=== PATIENT | female | born 1975 | race Two or more races ===

== ENCOUNTER 2022-07-02 10:44 | Emergency (ER) | payer OTHER ==
[~2022-07-02] VITALS: Ht 152.4 cm; Wt 86.7 kg
[2022-07-02 10:55] VITALS: BP 143/86
[2022-07-02 11:27] LABS: Urine Bacteria NONE SEEN /hpf (None Seen); Urine Blood Negative /uL (Negative); Urine Mucus FEW (None Seen); Urine Specific Gravity 1.025 (1.001-1.035); Urine WBC 2 /hpf (0 - 5)
[2022-07-02 12:00] LABS: Basophils # (auto) 0 10 ^3/uL (0-0.2); Basophils % (auto) 0.5 % (0.0-2.0); Eosinophils # (auto) 0.2 10 ^3/uL (0-0.8); Eosinophils % (auto) 2.6 % (0.0-7.0); Hematocrit 42.6 % (36.0-46.0); Hemoglobin 14.5 g/dL (12.2-16.2); Lymphocytes # (auto) 2.6 10 ^3/uL (0.4-5.4); Lymphocytes % (auto) 29.7 % (10.0-50.0); Mean Corpuscular Hemoglobin 30.1 pg (28.0-32.0); Mean Corpuscular Hgb Conc. 34.1 g/dL (32.0-36.0); Mean Corpuscular Volume 88.5 fL (80.0-100.0); Monocytes # (auto) 0.5 10 ^3/uL (0-1.3); Monocytes % (auto) 5.8 % (0.0-12.0); Neutrophils # (auto) 5.3 10 ^3/uL (1.6-8.6); Neutrophils % (auto) 61.4 % (37.0-80.0); Nucleated Red Blood Cells % 0.1 %; Red Blood Cells 4.82 10^6/uL (4.0-5.20); Red Cell Distribution Width 13.4 % (11.8-14.3); White Blood Cell 8.6 10^3/uL (4.4-10.8)
[2022-07-02 12:21] LABS: Albumin 3.9 g/dL (3.4-5.0); Calcium 9.1 mg/dL (8.5-10.1); Potassium 3.5 mmol/L (3.5-5.1)
[2022-07-02 12:24] LABS: Bilirubin, Total 0.3 mg/dL (0.2-1.0); Total Protein 7.5 g/dL (6.4-8.2)
[2022-07-02] MEDS ORDERED: TRAM-297 PO (14:49)
== END 2022-07-02 14:50 | disposition home or self-care (01) ==
LOC: ER 10:44
DX: K80.20 Calculus of gallbladder without cholecystitis without obstruction (principal); R10.31 Right lower quadrant pain; D21.9 Benign neoplasm of connective and other soft tissue, unspecified
CPT/HCPCS: 36415; 74176; 80053; 81001; 81025; 83690; 85025

== ENCOUNTER 2022-07-31 17:32 | Emergency (ER) | payer OTHER ==
[~2022-07-31] VITALS: Ht 152.4 cm; Wt 85.7 kg
[~2022-07-31 17:32] MED LIST: TRAM-297 PO
[2022-07-31 18:33] LABS: Basophils # (auto) 0 10 ^3/uL (0-0.2); Basophils % (auto) 0.3 % (0.0-2.0); Eosinophils # (auto) 0 10 ^3/uL (0-0.8); Eosinophils % (auto) 0.3 % (0.0-7.0); Hematocrit 42.9 % (36.0-46.0); Hemoglobin 15.1 g/dL (12.2-16.2); Lymphocytes # (auto) 0.9 10 ^3/uL (0.4-5.4); Lymphocytes % (auto) 6.7 % (10.0-50.0); Mean Corpuscular Hemoglobin 30.2 pg (28.0-32.0); Mean Corpuscular Hgb Conc. 35.1 g/dL (32.0-36.0); Monocytes # (auto) 0.5 10 ^3/uL (0-1.3); Monocytes % (auto) 4.1 % (0.0-12.0); Neutrophils # (auto) 11.6 10 ^3/uL (1.6-8.6); Neutrophils % (auto) 88.6 % (37.0-80.0); Nucleated Red Blood Cells % 0.3 %; Red Blood Cells 4.99 10^6/uL (4.0-5.20); Red Cell Distribution Width 13.2 % (11.8-14.3); White Blood Cell 13.1 10^3/uL (4.4-10.8)
[2022-07-31 18:49] LABS: Albumin 3.6 g/dL (3.4-5.0); BUN/Creatinine Ratio 11.9 (10.0-20.0); Calcium 8.3 mg/dL (8.5-10.1); Potassium 3.6 mmol/L (3.5-5.1)
[2022-07-31 18:51] LABS: Bilirubin, Total 0.5 mg/dL (0.2-1.0); Total Protein 7.4 g/dL (6.4-8.2)
[2022-07-31 18:56] LABS: Urine Bacteria NONE SEEN /hpf (None Seen); Urine Blood Negative /uL (Negative); Urine Mucus FEW (None Seen); Urine Specific Gravity 1.027 (1.001-1.035); Urine WBC <1 /hpf (0 - 5)
[2022-08-01] MEDS ORDERED: METR500T PO (00:56)
[2022-08-01] MEDS ORDERED: HYDR-4902 PO (00:56)
[2022-08-01] MEDS ORDERED: ONDA-144 PO (00:56)
[2022-08-01] MEDS ORDERED: cefTRIAXone SOD 1,000 MG VL IM ONE (01:00)
[2022-08-01] MEDS ORDERED: KETOROLAC TROMETH 30 MG/ML 1ML VIAL IM ONE (01:00)
[2022-08-01] MEDS ORDERED: ONDANSETRON ODT 4 MG TAB PO ONE (01:00)
[2022-08-01 02:12] VITALS: BP 123/81
== END 2022-08-01 02:25 | disposition home or self-care (01) ==
LOC: ER 17:32
DX: R10.13 Epigastric pain (principal); K80.20 Calculus of gallbladder without cholecystitis without obstruction; K80.70 Calculus of gallbladder and bile duct without cholecystitis without obstruction
CPT/HCPCS: 36415; 76705; 80053; 81001; 83605; 83690; 85025; 96372; 99285; J0696; J1885; Q0162

== ENCOUNTER 2023-11-25 12:27 | Emergency (ER) | payer OTHER ==
[~2023-11-25] VITALS: Ht 152.4 cm; Wt 88.7 kg
[~2023-11-25 12:27] MED LIST changes: +HYDR-4902 PO; +METR500T PO; +ONDA-144 PO
[2023-11-25] MEDS ORDERED: NAPR-746 PO (15:32)
[2023-11-25] MEDS: KETOROLAC TROMETH 30 MG/ML 1ML VIAL IM ONE (15:54)
[2023-11-25 15:55] VITALS: BP 142/71; PULSE 96; RESP 16; TEMP 98.7; O2SAT 96
== END 2023-11-25 16:02 | disposition home or self-care (01) ==
LOC: ER 12:36
DX: M77.31 Calcaneal spur, right foot (principal); Z79.1 Long term (current) use of non-steroidal anti-inflammatories (NSAID); Z79.891 Long term (current) use of opiate analgesic; Z79.899 Other long term (current) drug therapy
CPT/HCPCS: 73650; 96372; 99283; J1885

== ENCOUNTER 2025-01-16 09:35 | Emergency (ER) | payer BC, OTHER ==
[~2025-01-16] VITALS: Ht 152.4 cm; Wt 90.0 kg
[~2025-01-16 09:35] MED LIST changes: +NAPR-746 PO
[2025-01-16 09:36] VITALS: TEMP 98.8
--- NOTE | 2025-01-16 09:56 | ED.PDOC ---
History of Present Illness HPI Comments 49-year-old female presents to the ER with no prior medical history associated with a chief complaint of headache. Patient reports on having left-sided headache which radiates down her left neck for one week. Patient assumes that it might be related to the lump on her neck that she has been having for two months. Denies blurry vision, weakness, chills, fever, N/V/D, SOB, CP. No other associated symptoms, modifiers, recent injuries or sick contacts present at this time. Chief Complaint: Headache Time Seen by MD: 09:55 Primary Care Provider: ALDO Reviewed Notes: Nurses Notes, Medications, Allergies Allergies: Coded Allergies: NO KNOWN ALLERGIES (Unverified , 07/02/22) Home Meds Active Scripts Naproxen (Naproxen) 500 Mg Tab, 500 MG PO BIDPC for 14 Days, #28 TAB 0 Refills Prov:JAKE CARCAMO NP 11/25/23 Hydrocodone-Acetaminophen (Hydrocodone Bitartrate/AC 5-325 mg) 1 Tab Tab, 1 TAB PO TID PRN, #20 TAB Prov:MARIANA WILLS 08/01/22 Ondansetron (Zofran) 4 Mg Tab, 1 TAB PO Q6HR PRN, #10 TAB Prov:MARIANA WILLS 08/01/22 Metronidazole (Flagyl) 500 Mg Tab, 500 MG PO TID for 10 Days, #30 TAB Prov:MARIANA WILLS 08/01/22 Tramadol Hcl (Ultram) 50 Mg Tab, 1 TAB PO Q6HR, #30 TAB Prov:SOULEYMANE MADSEN MD 07/02/22 Information Source: Patient Mode of Arrival: Ambulatory Severity: Moderate Timing: Days Duration: Since onset, Days Prehospital treatment: None Past Medical History PAST MEDICAL HISTORY: Denies Surgical History: Denies all surgeries 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 Hx Family History Family History: Reviewed,noncontributory to illness, Unknown Social History Smoker: Non-Smoker Alcohol: Denies ETOH Use Drugs: Denies Drug Use Lives In: Home Constitutional: denies: chills, diaphoresis, fatigue, fever, malaise, sweats, weakness, others EENTM: denies: blurred vision, double vision, ear bleeding, ear discharge, ear drainage, ear pain, ear ringing, eye pain, eye redness, hearing loss, mouth pain, mouth swelling, nasal discharge, nose bleeding, nose congestion, nose pain, photophobia, tearing, throat pain, throat swelling, voice changes, others Respiratory: denies: cough, hemoptysis, orthopnea, SOB at rest, shortness of breath, SOB with excertion, stridor, wheezing, others Cardiovascular: denies: chest pain, dizzy spells, diaphoresis, Dyspnea on exertion, edema, irregular heart beat, left arm pain, lightheadedness, palpitations, PND, syncope, others Gastrointestinal: denies: abdomen distended, abdominal pain, blood streaked bowels, constipated, diarrhea, dysphagia, difficulty swallowing, hematemesis, melena, nausea, poor appetite, poor fluid intake, rectal bleeding, rectal pain, vomiting, others Genitourinary: denies: abnormal vagina bleeding, burning, dyspareunia, dysuria, flank pain, frequency, hematuria, incontinence, pain, , vagina disch arge, urgency, others Neurological: reports: headache; denies: dizziness, fainting, left sided numbness, left sided weakness, numbness, paresthesia, pre-existing deficit, right sided numbness, right sided weakness, seizure, speech problems, tingling, tremors, weakness, others Musculoskeletal: reports: neck pain (Headache radiates down to the neck); denies: back pain, gout, joint pain, joint swelling, muscle pain, muscle st iffness, others Integumetry: denies: bruises, change in color, change in hair/nails, dryness, laceration, lesions, lumps, rash, wounds, others Allergic/Immunocompromised: denies: Difficulty Healing, Frequent Infections, Hives, Itching, others Hematologic/Lymphatic: denies: anemia, blood clots, easy bleeding, easy bru ising, swollen glands, others Endocrine: denies: excessive hunger, excessive sweating, excessive thirst, e xcessive urination, flushing, intolerance to cold, intolerance to heat, unexplained weight gain, unexplained weight loss, others Psychiatric: denies: anxiety, bipolar disorder, depression, hopeless, panic disorder, schizophrenia, sleepless, suicidal, others All Other Systems: Reviewed and Negative Physical Exam General Appearance: Moderate Distress, Normal HEENT: Normal ENT Inspection, Pharynx Normal, TMs Normal Neck: Full Range of Motion, Non-Tender, Normal, Normal Inspection Respiratory: Chest Non-Tender, Lungs Clear, No Accessory Muscle Use, No Respiratory Distress, Normal Breath Sounds Cardiovascular: No Edema, No JVD, No Murmur, No Gallop, Normal Peripheral Pulses, Regular Rate/Rhythm Breast Exam: Deferred Gastrointestinal: No Organomegaly, Non Tender, No Pulsatile Mass, Normal Bowel Sounds, Soft Genitalia: Deferred Pelvic: Deferred Rectal: Deferred Extremities: No calf tenderness, Normal capillary refill, Normal inspection, Normal range of motion, Non-tender, No pedal edema Musculoskeletal : Apperance: Normal Neurologic: Alert, 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 Was a procedure done?: No Differential Dx Considerations may include: Anxiety Muscle strain X-Ray, Labs, Meds, VS Vital Signs Date Time Temp Pulse Resp B/P (MAP) Pulse Ox O2 Delivery O2 Flow Rate FiO2 01/16/25 10:11 78 18 136/88 (104) 98 01/16/25 10:11 78 18 98 Room Air 01/16/25 09:36 98.8 91 15 145/95 97 98.8 Current Medications Medications (Trade) Dose Ordered Sig/Aaron Route Start Time Stop Time Status Last Admin Ketorolac Tromethamine (Toradol Injection) 60 mg ONCE ONCE IM 01/16/25 10:15 01/16/25 10:16 DC 01/16/25 10:16 Patient alert. Complaining of body pains. Vitals stable. Answering all questions. Neurological examination pristine. No leg swelling. No shortness a breath. No chest pain. No blurring of vision. Was given prescription of Ativan. Explained to the patient's symptoms due to her fluctuation blood pressure. Was told to follow up with her primary care physician. Was told to come back if there is any problem. Time of 1ST Reevaluation: 10:25 Reevaluation 1ST: Improved Patient Education/Counseling: Diagnosis, Treatment, Prognosis Family Education/Counseling: No Family Present SEPSIS Sepsis Screen Date sepsis recognized/suspect: Jan 16, 2025 Time Sepsis recognized/suspect: 937 Recent Procedure: No On Antibiotic Therapy: No Respiratory Rate >20: No Heart Rate >90: No Temp<36 C (96.8 F) or >38.3 C: No SBP <90 or MAP <65 mmHG: No New Acute Mental Status Change: No Is the patient on CPAP, BIPAP,: No Vital Signs Date Time Temp Pulse Resp B/P (MAP) Pulse Ox O2 Delivery O2 Flow Rate FiO2 01/16/25 10:11 78 18 136/88 (104) 98 01/16/25 10:11 78 18 98 Room Air 01/16/25 09:36 98.8 91 15 145/95 97 98.8 Medications Medications Dose Ordered Sig/Aaron Route Start Time Stop Time Status Last Admin Dose Admin Ketorolac Tromethamine 60 mg ONCE ONCE IM 01/16/25 10:15 01/16/25 10:16 DC 01/16/25 10:16 Departure 1 Departure Time of Disposition: 11:18 Impression: Primary Impression: Stress reaction Additional Impression: Muscle strain Disposition: 01 HOME / SELF CARE / HOMELESS Condition: Good e-Prescriptions Lorazepam (ATIVAN TABLET) 0.5 Mg Tb 1 TAB PO DAILY for 3 Days, #3 TAB Prov: SHYANNE THOMPSON MD 01/16/25 Discharged With: Self Critical Care Note Critical Care Time?: No Stability Stability form required: No Heart Score Heart Score: Heart Score Response (Comments) Value History N/A 0 EKG N/A 0 Age N/A 0 Risk Factors N/A 0 Troponin N/A 0 Total 0 I personally scribed for SHYANNE THOMPSON MD ([email or web address]) on 01/16/25 at 09:56. Electronically submitted by Chucky Donnelly ([email or web address]). SHYANNE THOMPSON MD Jan 16, 2025 09:56
[2025-01-16 10:11] VITALS: BP 136/88; PULSE 78; RESP 18; O2SAT 98
[2025-01-16] MEDS: KETOROLAC TROMETH 60MG/2ML VIAL IM ONE (10:16)
[2025-01-16] MEDS ORDERED: LORA-1121 PO (11:19)
== END 2025-01-16 11:25 | disposition home or self-care (01) ==
LOC: ER 09:35
DX: T14.8XXA Other injury of unspecified body region, initial encounter (principal); F43.9 Reaction to severe stress, unspecified; Z79.899 Other long term (current) drug therapy; X58.XXXA Exposure to other specified factors, initial encounter; Y93.89 Activity, other specified; Y92.89 Other specified places as the place of occurrence of the external cause; Y99.8 Other external cause status
CPT/HCPCS: 96372; 99283; J1885